=== PATIENT | female | born 1970 | race Hispanic/Latino ===

== ENCOUNTER → 2024-12-07 13:16 | Outpatient (REF) | payer SELFPAY | LOC: WDC 13:16 | PROVIDERS: ATTENDING PHYSICIAN Nurse Practitioner Adult Health | DX: Z12.31 Encounter for screening mammogram for malignant neoplasm of breast (principal) | CPT/HCPCS: 77063; 77067 ==

== ENCOUNTER 2025-01-10 17:06 | Emergency (ER) | payer OTHER, SELFPAY ==
[2025-01-10 17:07] VITALS: BP 134/77
[2025-01-10 17:08] VITALS: BP 134/77
--- NOTE | 2025-01-10 17:56 | ED.GENMED ---
History of Present Illness
General
Chief Complaint: Musculo-Skeletal Complaint
Source: patient
Exam Limitations: none
Time Seen by Provider: 01/10/25 17:16
History of Present Illness
History of Present Illness:
54yoF presenting with her daughter for evaluation of a left foot injury. She tripped this morning over a box and injured her left 3rd and 4th toes. She was able to go to work today but had to leave early due to the pain. She was seen at urgent care
prior to arrival and had foot x-rays done which revealed 'Mildly displaced fracture at the junction of the middle and distal phalanx of the 3rd and 4th toes. Lucency at the base of the middle phalanx portion of the 5th toe possibly related to a
nondisplaced fracture.' Toes were quinten taped and she was advised to f/u with orthopedics. She has no other concerns at this time.
Phy Exam
General Physical Exam
General Presentation: well appearing and no apparent distress
General age: appears stated age
General Skin: warm and dry
General Habitus: normal
General Mental: alert
Neurological Exam
Neurological Exam: alert
Musculoskeletal Exam
Musculoskeletal Exam: other (L foot: Ecchymosis/swelling noted to 3rd and 4th digits which extends into dorsum of foot. No deformity or open wounds. ROM intact. No other areas of tenderness in foot. 2+ DP pulse and sensation intact.)
Psychiatric Exam
Psychiatric Exam: normal mood/affect
Course
Orders/Labs/Results
Orders:
Orders
01/10/25 17:56
Quinten Tape Left-Treatment ONCE
Cast Shoe Left-Treatment ONCE
Vital Signs
Initial and Last Documented VS:
Initial Vital Signs
Temp Pulse Resp BP Pulse Ox
98.0 F 76 20 134/77 97
01/10/25 17:07 01/10/25 17:07 01/10/25 17:07 01/10/25 17:07 01/10/25 17:07
Last Documented Vital Signs
Temp Pulse Resp BP Pulse Ox
97.9 F 74 18 134/77 96
01/10/25 17:08 01/10/25 17:08 01/10/25 17:08 01/10/25 17:08 01/10/25 17:08
MDM/Problems Addressed
Differential Diagnosis Includes:
54yoF here with L 3rd and 4th toe pain after an injury this morning. Seen at urgent care [employer] and diagnosed with mildly displaced toe fractures. She arrives with a copy of the radiology report and a disc with the images. VSS. There is ecchymosis and
swelling noted on exam. No deformity. LLE is neurovascularly intact. Differential diagnosis includes: fracture, dislocation, sprain, contusion
No indication for repeat x-rays. Discussed treatment of toe fractures with patient including quinten taping and cast shoe. Advised ice and Tylenol/Motrin for pain. She was instructed to f/u with orthopedics/podiatry with any concerns.
*Critical Care Note
Total Time (30-74mins, 75-104mins- exclusive of procedures): Not Applicable
ED Attending Note
-
Portions of this chart may have been created with voice recognition software.� Occasional wrong word or��sound alike� substitutions may have occurred due to the inherent limitations of voice recognition software.
Discharge Plan
Departure
Patient Disposition: Home (Routine Discharge)
Date of Disposition: 01/10/25
Time of Disposition: 17:59
Patient with high blood pressure during this ER visit?: No
Discharge Problem:
Fracture of multiple toes
Instructions: Toe Fracture ED
Referrals:
Masha Cao NP [Family Provider] -
Sea Stoddard MD [Active] -
Kenton Joshi MD [Active] -
Activity Restrictions/Additional Instructions:
Uqinten tape toes for immobilization and wear cast shoe. Apply ice to help with swelling. Take Tylenol and ibuprofen for pain.
Toe fractures typically heal in 4-6 weeks. Please follow-up with orthopedics or podiatry with any concerns.
Interventions
Interventions:
*Risk Screen - Suicide Last Done: 01/10/25 17:08
*General Assessment Last Done: 01/10/25 17:08
*Neglect/Abuse Screening Last Done: 01/10/25 17:08
*ED COVID-19 Vaccine History Last Done: 01/10/25 17:34
*Nursing Disposition Last Done: 01/10/25 18:19
ED-Musculoskeletal Assessment Last Done: 01/10/25 17:34
Discharge Date and Time
Discharge Date/Time: 01/10/25 18:20
Print Language: ARABIC
== END 2025-01-10 18:20 | disposition home or self-care (01) ==
LOC: EMR 17:06
PROVIDERS: EMERGENCY PHYSICIAN Emergency Medicine; FAMILY PHYSICIAN Nurse Practitioner Adult Health
DX: S92.532A Displaced fracture of distal phalanx of left lesser toe(s), initial encounter for closed fracture (principal); S92.522A Displaced fracture of middle phalanx of left lesser toe(s), initial encounter for closed fracture; W22.8XXA Striking against or struck by other objects, initial encounter
CPT/HCPCS: 99283

== ENCOUNTER → 2025-01-11 07:45 | Outpatient (REF) | payer OTHER, SELFPAY ==
[2025-01-11 09:49] LABS: Hematocrit 40.7 % (37.0-47.0); Hemoglobin 13.1 g/dL (12.0-16.0); Mean Corp Hgb Conc. 32.2 g/dL (33.0-37.0); Mean Corpuscular Hgb 25.7 pg (27.0-31.0); Mean Platelet Volume 11.7 fL (7.4-10.4); Platelet Count 160 10^3/uL (130-400); Red Blood Cell Count 5.09 10^6/uL (4.20-5.40); Red Cell Dist. Width 13.8 % (11.5-14.5); White Blood Cell Count 6.2 10^3/uL (4.8-10.8)
[2025-01-11 10:37] LABS: ALT (SGPT) 49 U/L (0-35); AST (SGOT) 36 U/L (14-36); Alkaline Phosphatase 117 U/L (38-126); Blood Urea Nitrogen 12 mg/dl (7-17); Carbon Dioxide 29 mmol/L (22-30); Chloride 104 mmol/L (98-107); Glucose 88 mg/dl (70-99); HDL Cholesterol 66 mg/dl; LDL Cholesterol, Calculated 136 mg/dl; Potassium 4.5 mmol/L (3.5-5.1); Sodium 138 mmol/L (135-145); Total Bilirubin 0.9 mg/dl (0.2-1.3); Total Cholesterol 217 mg/dl (50-199); Total Protein 6.8 g/dl (6.3-8.2); Triglyceride 78 mg/dl (10-149); Very Low Density Lipoprotein 15 mg/dl (0-30); eGFR > 60.00
== END ==
LOC: REG 07:45
PROVIDERS: ATTENDING PHYSICIAN Nurse Practitioner Adult Health
DX: R73.03 Prediabetes (principal); Z12.11 Encounter for screening for malignant neoplasm of colon
CPT/HCPCS: 36415; 80053; 80061; 83036; 85027

== ENCOUNTER → 2025-01-25 10:02 | Outpatient (REF) | payer OTHER, SELFPAY ==
[2025-01-27 17:00] LABS: FIT-Fecal Occult Blood Interp Negative
== END ==
LOC: REG 10:02
PROVIDERS: ATTENDING PHYSICIAN Nurse Practitioner Adult Health
DX: R73.03 Prediabetes (principal); Z12.11 Encounter for screening for malignant neoplasm of colon
CPT/HCPCS: 83520

== ENCOUNTER → 2025-06-20 06:23 | Outpatient (REF) | payer OTHER, SELFPAY ==
[2025-06-20 08:16] LABS: ALT (SGPT) 36 U/L (0-35); AST (SGOT) 32 U/L (14-36); Albumin 4.2 g/dl (3.5-5.0); Alkaline Phosphatase 115 U/L (38-126); Blood Urea Nitrogen 11 mg/dl (7-17); Calcium 9.0 mg/dl (8.4-10.2); Carbon Dioxide 28 mmol/L (22-30); Chloride 107 mmol/L (98-107); Glucose 94 mg/dl (70-99); Potassium 4.2 mmol/L (3.5-5.1); Sodium 139 mmol/L (135-145); Total Protein 7.1 g/dl (6.3-8.2); eGFR > 60.00
[2025-06-20 08:54] LABS: Glycohemoglobin (HgbA1c) 6.0 % (4.0-5.6)
== END ==
LOC: REG 06:23
PROVIDERS: ATTENDING PHYSICIAN Nurse Practitioner Adult Health
DX: R73.03 Prediabetes (principal); R74.8 Abnormal levels of other serum enzymes
CPT/HCPCS: 36415; 80053; 83036

== ENCOUNTER → 2025-08-25 16:59 | Outpatient (REF) | payer OTHER, SELFPAY ==
[2025-08-29 21:43] LABS: HPV, High Risk Not Detected; HPV, High Risk Source Cervical
== END ==
LOC: CLINIC 16:59
PROVIDERS: ATTENDING PHYSICIAN Nurse Practitioner Adult Health
DX: Z12.4 Encounter for screening for malignant neoplasm of cervix (principal)
CPT/HCPCS: 87624; G0123